=== PATIENT | female | born 2000 | race Hispanic/Latino ===

== ENCOUNTER 2021-10-11 21:06 | Emergency (ER) | payer SELFPAY ==
[~2021-10-11] VITALS: Ht 157.5 cm; Wt 61.2 kg
[2021-10-11] MEDS ORDERED: MILK OF MA2400 MG/10 PO (22:47)
[2021-10-11 22:57] VITALS: BP 122/83
== END 2021-10-11 22:57 | disposition home or self-care (01) ==
LOC: FSED 21:13
DX: R10.33 Periumbilical pain (principal); K59.00 Constipation, unspecified
CPT/HCPCS: 74021; 81003; 81025; 99283